=== PATIENT | female | born 1985 | race Caucasian/White ===

== ENCOUNTER 2017-01-03 00:06 | Emergency (ER) | payer OTHER ==
--- NOTE | 2017-01-03 03:09 | ED NURSING NOTES ---
Clinical Report - Nurses [facility] [place] [address] 01/03/2017 0:08 Patient: TATYANA SOUSA TRIAGE Triage time 00:Jan 03 2017. Acuity: LEVEL 4. Chief Complaint: (numbness and tingling all along R arm, pain in neck). Alert. No acute distress. SEPSIS SCREEN: Sepsis Screen. Negative (no infection suspected/documented). ELIJAH COMA SCORE: Elijah Coma Scale: 15- eyes open spontaneously (4); best verbal response- oriented x 4 (5); best motor response- obeys commands (6). --00:22 Doron Page R.N. 00:16 01/03/17. BP: 115/83. HR: 88. RR: 16. O2 saturation: 100% on room air. Temp: 97.8 F. Pain level now: 01/30. --00:22 Doron Page R.N. Weight: 63.5 kg stated. Height/Length: 68 inches Per Patient. BMI: 21.3. --00:15 Doron Page R.N. Medications Multivitamins Oral. --00:20 Doron Page R.N. Allergies Sulfa Antibiotics. --00:20 Doron Page R.N. History Arrived by private vehicle. Historian: patient. Onset. (4 days ago). 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 PAST MEDICAL HX: Immunizations: up-to-date. Last normal menstrual period- a few weeks ago; IUD in place. SOCIAL HX: Light tobacco smoker (cigarette)- less than 1/2 a pack per day. Occasional alcohol use. No drug use. The patient was exposed to MRSA. ABUSE ASSESSMENT: No report of abuse. SELF HARM ASSESSMENT: A self harm assessment was performed. The patient answered "no" to the question "Have you recently felt down, depressed, or hopeless?" and "Do you have thoughts of harming or killing yourself?". FALL RISK ASSESSMENT: Fall risk assessment completed. No fall risk identified. NUTRITIONAL RISK ASSESSMENT: The nutritional risk assessment revealed no deficiencies. FUNCTIONAL ASSESSMENT: Functional assessment: no impairments noted. LEARNING NEEDS ASSESSMENT: The learning needs assessment revealed no barriers. SKIN INTEGRITY ASSESSMENT: Skin integrity risk assessment completed. No skin integrity risk identified. --00:22 Doron Page R.N. ( Pt had some pain in her L scapula starting last year. Her PCP gave her a muscle relaxer but she was unable to take it because it made her sick. The numbness and tingling has been intermittent up until the past 4 days, it has been constant and very uncomfortable. She has some pain along the medial border of her scapula upon palpation.). --00:27 Doron Page R.N. PROBLEMS: no known problems. ADDITIONAL SURGERIES: no known surgeries. Interventions ID band on patient. To treatment room. --00:22 Doron Page R.N. PHYSICAL ASSESSMENT Ambulatory to room. GENERAL / NEURO / PSYCH: Alert. Oriented X 4. Appears in distress. HEENT: Pupils equal, round and reactive to light. RESPIRATORY: Respirations not labored. CVS: Pulses within normal limits. GI / : Abdomen soft and nontender. SKIN: Skin is warm and dry. Normal skin turgor. --00:22 Doron Page R.N. BACK: ( point tenderness along medial scapular border). --00:28 Doron Page R.N. NURSING PROGRESS NOTES The plan of care for this patient has been created. Monitoring of patient in place. Patient gowned. Head of bed elevated. Reassurance given. Two patient identifiers checked. Call light placed in reach. Side rails up x 2. Bed placed in lowest position. Patient ready for evaluation- ED physician notified. --00:22 Doron Page R.N. ( Pt tearful, states the numbness and tingling is very discomforting. Brought her a warm blanket, waiting for Phys Eval.). --01:06 Doron Page R.N. Care transferred and report given (to SAJI Villegas). --01:13 Doron Page R.N. 03:12 01/03/2017 Ultram (TraMADol HCl) PO Tablets 50 mg given. Allergies verified, confirmed 5 rights and sedative warning given to the patient. --03:12 Nelly Cosby R.N. DISPOSITION / DISCHARGE Departure time: 313. Condition at departure: improved and stable. No learning barriers present. Discharge instructions provided and reviewed with the patient. Reviewed medication(s) side effects, precautions, dosing and course information. Patient verbalized understanding. Written instructions provided in Persian. The patient was discharged home and accompanied by molecular biology director. She left the Emergency Department ambulatory and via private vehicle. Diecast Machine Operator driving. --03:21 Nelly Cosby R.N. 03:05 01/03/17. BP: 121/80 taken on the left arm, while lying. HR: 74 (regular and normal rate). RR: 18 (regular and unlabored). O2 saturation: 100% on room air. Temp: deferred. Pain level now: 09/30. --03:21 Nelly Cosby R.N. Locked/Released at 01/03/2017 3:21 by Nelly Cosby R.N.
--- NOTE | 2017-01-03 03:09 | ED ORDER SUMMARY ---
..... Patient: TATYANA SOUSA OrderSheet [facility] VisitID: [id number] [place] [address] 31y, F Registration Date/Time: 01/03/2017 ORDER SHEET Weight: 63.5 kg (stated) Allergies: Sulfa Antibiotics GENERAL ORDERS: Chest 2V Urgent (02:01/03/2017 Amor PATEL) (Ack 2:19 LMuller) (2:31 Thanh) Cervical Spine 2 or 3V Urgent (02:01/03/2017 Amor PATEL) (Ack 2:19 LMuller) (2:31 Thanh) MEDICATION ORDERS: Ultram PO 50 mg (NOW) (03:06 01/03/2017 Amor PATEL) (Ack 3:07 CBradburn R.N.) (3:12 CBradburn R.N.) IV FLUIDS: ORDER SHEET NOTES: [Electronically signed by Nelly Cosby R.N. (03:21 01/03/2017)] [Electronically signed by Neel Landrum MD (10:33 01/05/2017)] [Electronically locked/signed by Nelly Cosby R.N. (03:01/03/2017)]
--- NOTE | 2017-01-03 03:09 | ED NURSING NOTES ---
Clinical Report - Nurses [facility] [place] [address] 01/03/2017 0:08 Patient: TATYANA SOUSA TRIAGE Triage time 00:Jan 03 2017. Acuity: LEVEL 4. Chief Complaint: (numbness and tingling all along R arm, pain in neck). Alert. No acute distress. SEPSIS SCREEN: Sepsis Screen. Negative (no infection suspected/documented). ELIJAH COMA SCORE: Elijah Coma Scale: 15- eyes open spontaneously (4); best verbal response- oriented x 4 (5); best motor response- obeys commands (6). --00:22 Doron Page R.N. 00:16 01/03/17. BP: 115/83. HR: 88. RR: 16. O2 saturation: 100% on room air. Temp: 97.8 F. Pain level now: 01/30. --00:22 Doron Page R.N. Weight: 63.5 kg stated. Height/Length: 68 inches Per Patient. BMI: 21.3. --00:15 Doron Page R.N. Medications Multivitamins Oral. --00:20 Doron Page R.N. Allergies Sulfa Antibiotics. --00:20 Doron Page R.N. History Arrived by private vehicle. Historian: patient. Onset. (4 days ago). 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 PAST MEDICAL HX: Immunizations: up-to-date. Last normal menstrual period- a few weeks ago; IUD in place. SOCIAL HX: Light tobacco smoker (cigarette)- less than 1/2 a pack per day. Occasional alcohol use. No drug use. The patient was exposed to MRSA. ABUSE ASSESSMENT: No report of abuse. SELF HARM ASSESSMENT: A self harm assessment was performed. The patient answered "no" to the question "Have you recently felt down, depressed, or hopeless?" and "Do you have thoughts of harming or killing yourself?". FALL RISK ASSESSMENT: Fall risk assessment completed. No fall risk identified. NUTRITIONAL RISK ASSESSMENT: The nutritional risk assessment revealed no deficiencies. FUNCTIONAL ASSESSMENT: Functional assessment: no impairments noted. LEARNING NEEDS ASSESSMENT: The learning needs assessment revealed no barriers. SKIN INTEGRITY ASSESSMENT: Skin integrity risk assessment completed. No skin integrity risk identified. --00:22 Doron Page R.N. ( Pt had some pain in her L scapula starting last year. Her PCP gave her a muscle relaxer but she was unable to take it because it made her sick. The numbness and tingling has been intermittent up until the past 4 days, it has been constant and very uncomfortable. She has some pain along the medial border of her scapula upon palpation.). --00:27 Doron Page R.N. PROBLEMS: no known problems. ADDITIONAL SURGERIES: no known surgeries. Interventions ID band on patient. To treatment room. --00:22 Doron Page R.N. PHYSICAL ASSESSMENT Ambulatory to room. GENERAL / NEURO / PSYCH: Alert. Oriented X 4. Appears in distress. HEENT: Pupils equal, round and reactive to light. RESPIRATORY: Respirations not labored. CVS: Pulses within normal limits. GI / : Abdomen soft and nontender. SKIN: Skin is warm and dry. Normal skin turgor. --00:22 Doron Page R.N. BACK: ( point tenderness along medial scapular border). --00:28 Doron Page R.N. NURSING PROGRESS NOTES The plan of care for this patient has been created. Monitoring of patient in place. Patient gowned. Head of bed elevated. Reassurance given. Two patient identifiers checked. Call light placed in reach. Side rails up x 2. Bed placed in lowest position. Patient ready for evaluation- ED physician notified. --00:22 Doron Page R.N. ( Pt tearful, states the numbness and tingling is very discomforting. Brought her a warm blanket, waiting for Phys Eval.). --01:06 Doron Page R.N. Care transferred and report given (to SAJI Villegas). --01:13 oDron Page R.N. 03:12 01/03/2017 Ultram (TraMADol HCl) PO Tablets 50 mg given. Allergies verified, confirmed 5 rights and sedative warning given to the patient. --03:12 Nelly Cosby R.N. DISPOSITION / DISCHARGE Departure time: 313. Condition at departure: improved and stable. No learning barriers present. Discharge instructions provided and reviewed with the patient. Reviewed medication(s) side effects, precautions, dosing and course information. Patient verbalized understanding. Written instructions provided in Lao. The patient was discharged home and accompanied by merchandise director. She left the Emergency Department ambulatory and via private vehicle. Athlete Marketing Agent driving. --03:21 Nelly Cosby R.N. 03:05 01/03/17. BP: 121/80 taken on the left arm, while lying. HR: 74 (regular and normal rate). RR: 18 (regular and unlabored). O2 saturation: 100% on room air. Temp: deferred. Pain level now: 09/30. --03:21 Nelly Cosby R.N. Locked/Released at 01/03/2017 3:21 by Nelly Cosby R.N.
--- NOTE | 2017-01-03 03:09 | ED CLINICAL REPORT ---
Clinical Report - Physicians/Mid Levels [facility] [address] [place] [address] 01/03/2017 0:08 Patient: TATYANA SOUSA Time Seen: 01:11. Arrived- By private vehicle. Historian- patient. HISTORY OF PRESENT ILLNESS Chief Complaint: UPPER EXTREMITY PAIN and ALTERED SENSATION. Severity is described as being severe. It has become recently worse. The quality is noted to be aching and "pain". This started several days ago and is still present. Symptoms located in the area of the right arm. The patient has not had redness. No swelling, sensory loss or motor loss. (She had some pain in her L scapula starting last year. Her PCP gave her a muscle relaxer but she was unable to take it because it made her sick. The numbness and tingling has been intermittent up until the past 4 days, it has been constant and very uncomfortable). Patient notes the possibility of an injury. REVIEW OF SYSTEMS No chills, fever, sweats, calf pain or chest pain. No cough, difficulty breathing, pedal edema, palpitations or abdominal pain. No constipation, diarrhea, nausea, vomiting or urinary problems. All systems otherwise negative, except as recorded above. PAST HISTORY Problems: no known problems. Additional Surgeries: no known surgeries. Medications: Multivitamins Oral. Allergies: Sulfa Antibiotics. SOCIAL HISTORY Current every day light tobacco smoker (cigarette)- less than 1/2 a pack per day. Occasional alcohol use. No drug use. FAMILY HISTORY No significant family medical history. ADDITIONAL NOTES The nursing notes have been reviewed. PHYSICAL EXAM Vital Signs: 01/03/2017 00:16 BP: 115/83. HR: 88. RR: 16. O2 saturation: 100%. Temp: 97.8 F. Pain level now: 7/10. Have been reviewed. Appearance: Alert. Eyes: Pupils equal, round and reactive to light. ENT: Pharynx normal. Neck: Normal inspection. Moderate pain in the posterior neck upon turning the head to the left and flexing the neck. CVS: Normal heart rate and rhythm. Heart sounds normal. Respiratory: No respiratory distress. Breath sounds normal. Abdomen: Soft and nontender. No organomegaly. Back: Moderate soft tissue tenderness in the right upper and left upper thoracic paraspinous region. Muscle spasm of the back. Skin: Skin warm and dry. Normal skin color. Normal skin turgor. Extremities: Extremities otherwise negative. Neuro: No motor deficit. No weakness. No sensory deficit. LABS, X-RAYS, AND EKG C-Spine X-rays: (IMPRESSION: 1. Straightening of the cervical lordosis may be a reflection of cervical spasm or positional changes. 2. Otherwise negative cervical spine.). The X-rays were interpreted by the radiologist and contemporaneously by me. Chest X-ray: No acute disease. The X-rays were interpreted by the radiologist and contemporaneously by me. PROGRESS AND PROCEDURES Course of Care: Patient is stable. Patient/family counseled. Old medical records reviewed. Disposition: Discharged. Condition: stable. CLINICAL IMPRESSION Paresthesia INSTRUCTIONS No driving or operating machinery while taking medication. Sedative medication was given during your visit. Limit lifting. Warnings: Further evaluation is necessary. GENERAL WARNINGS: Return or contact your physician immediately if your condition worsens or changes unexpectedly, if not improving as expected, or if other problems arise. Prescription Medications: Ultram 50 mg: take 1-2 orally every 6 hours as needed for pain. Dispense fifteen (15). No refills. Substitution is permissible. Gabapentin 300 mg capsules: take 1 orally every 8 hours. Dispense fifteen (15). No refill. OTC Medications: Motrin (available over the counter): take according to label instructions. Understanding of the discharge instructions verbalized by patient. (Electronically signed by Neel Landrum MD 01/05/2017 10:33)
--- NOTE | 2017-01-03 03:09 | ED ORDER SUMMARY ---
..... Patient: TATYANA SOUSA OrderSheet [facility] VisitID: [id number] [place] [address] 31y, F Registration Date/Time: 01/03/2017 ORDER SHEET Weight: 63.5 kg (stated) Allergies: Sulfa Antibiotics GENERAL ORDERS: Chest 2V Urgent (02:01/03/2017 Amor PATEL) (Ack 2:19 LMuller) (2:31 Thanh) Cervical Spine 2 or 3V Urgent (02:01/03/2017 mAor PATEL) (Ack 2:19 LMuller) (2:31 Thanh) MEDICATION ORDERS: Ultram PO 50 mg (NOW) (03:06 01/03/2017 Amor PATEL) (Ack 3:07 CBradburn R.N.) (3:12 CBradburn R.N.) IV FLUIDS: ORDER SHEET NOTES: [Electronically signed by Nelly Cosby R.N. (03:21 01/03/2017)] [Electronically signed by Neel Landrum MD (10:33 01/05/2017)] [Electronically locked/signed by Nelly Cosby R.N. (03:01/03/2017)]
--- NOTE | 2017-01-03 06:32 | DIAGNOSTIC IMAGING REPORT ---
PROCEDURE: XR CHEST 2 VIEW INDICATION: Right upper extremity paresthesia (tingling). TECHNIQUE: PA and lateral views. COMPARISON: None. FINDINGS: Lungs are clear. Heart and mediastinum are normal. Thorax is normal. IMPRESSION: 1. Negative chest.
--- NOTE | 2017-01-03 06:33 | DIAGNOSTIC IMAGING REPORT ---
PROCEDURE: XR CERVICAL SPINE 2 OR 3 VIEW INDICATION: RUE TINGLING TECHNIQUE: Three views. COMPARISON: None. FINDINGS: Straightening of the cervical lordosis. Osseous structures and disc spaces are normal. No evidence of an acute process or fracture. IMPRESSION: 1. Straightening of the cervical lordosis may be a reflection of cervical spasm or positional changes. 2. Otherwise negative cervical spine.
--- NOTE | 2017-01-05 10:33 | ED MAR SUMMARY ---
..... Medication Administration Record [facility] [address] [place] [address] Patient: TATYANA SOUSA Visit ID: [id number] 31y, F Weight: 63.5 kg Height/Length: 68 in BMI: 21.3 ALLERGIES: Sulfa Antibiotics Given 03:12 01/03/2017 Nelly Cosby R.N. Medication Administered: ULTRAM [PO] (TRAMADOL HCL), Dose: 50 mg Tablets PO. Medication Ordered: Ultram PO 50 mg (NOW).
--- NOTE | 2017-01-05 10:33 | ED MED RECONCILIATION SUMMARY ---
Patient: TATYANA SOUSA Medication Reconciliation Report [facility] VisitID: [id number] [place] [address] 31y, F Registration Date/Time: 01/03/2017 Weight: 63.5 kg Height/Length: 68 in. BMI: 21.3 ALLERGIES: Sulfa Antibiotics The patient's Home Medications are listed below: THE FOLLOWING MEDICATIONS NEED TO BE RECONCILED: Multivitamins Oral The source(s) of the original Home Medication information: Not obtained. The following Medications were given to the patient in the Emergency Department: Ultram [PO] PO 50 mg, administered: 01/03/2017 3:12:00 AM The following Medications were prescribed to the patient: Motrin (available over the counter): take according to label instructions. -- Neel Landrum MD Ultram 50 mg: take 1-2 orally every 6 hours as needed for pain. Dispense fifteen (15). No refills. Substitution is permissible. -- Neel Landrum MD Gabapentin 300 mg capsules: take 1 orally every 8 hours. Dispense fifteen (15). No refill. -- Neel Landrum MD
--- NOTE | 2017-01-05 10:33 | ED MED RECONCILIATION SUMMARY ---
Patient: TATYANA SOUSA Medication Reconciliation Report [facility] VisitID: [id number] [place] [address] 31y, F Registration Date/Time: 01/03/2017 Weight: 63.5 kg Height/Length: 68 in. BMI: 21.3 ALLERGIES: Sulfa Antibiotics The patient's Home Medications are listed below: THE FOLLOWING MEDICATIONS NEED TO BE RECONCILED: Multivitamins Oral The source(s) of the original Home Medication information: Not obtained. The following Medications were given to the patient in the Emergency Department: Ultram [PO] PO 50 mg, administered: 01/03/2017 3:12:00 AM The following Medications were prescribed to the patient: Motrin (available over the counter): take according to label instructions. -- Neel Landrum MD Ultram 50 mg: take 1-2 orally every 6 hours as needed for pain. Dispense fifteen (15). No refills. Substitution is permissible. -- Neel Landrum MD Gabapentin 300 mg capsules: take 1 orally every 8 hours. Dispense fifteen (15). No refill. -- Neel Landrum MD
--- NOTE | 2017-01-05 10:33 | ED MAR SUMMARY ---
..... Medication Administration Record [facility] [address] [place] [address] Patient: TATYANA SOUSA Visit ID: [id number] 31y, F Weight: 63.5 kg Height/Length: 68 in BMI: 21.3 ALLERGIES: Sulfa Antibiotics Given 03:12 01/03/2017 Nelly Cosby R.N. Medication Administered: ULTRAM [PO] (TRAMADOL HCL), Dose: 50 mg Tablets PO. Medication Ordered: Ultram PO 50 mg (NOW).
--- NOTE | 2017-01-05 10:33 | ED DISCHARGE INSTRUCTIONS ---
Patient: TATYANA SOUSA General Instructions [facility] VisitID: [id number] [place] [address] 31y, F Registration Date/Time: 01/03/2017 Paresthesia INSTRUCTIONS No driving or operating machinery while taking medication. Sedative medication was given during your visit. Limit lifting. Warnings: Further evaluation is necessary. GENERAL WARNINGS: Return or contact your physician immediately if your condition worsens or changes unexpectedly, if not improving as expected, or if other problems arise. Prescription Medications: Ultram 50 mg: take 1-2 orally every 6 hours as needed for pain. Dispense fifteen (15). No refills. Substitution is permissible. Gabapentin 300 mg capsules: take 1 orally every 8 hours. Dispense fifteen (15). No refill. OTC Medications: Motrin (available over the counter): take according to label instructions. Understanding of the discharge instructions verbalized by patient. ADDITIONAL INFORMATION Paraesthesias Paraesthesia refers to a burning or prickling sensation that is sometimes felt in the hands, arms, legs or feet. It can also occur in other parts of the body. It can also feel like tingling or numbness, skin crawling or itching.The sensation is usually painless. Most people have experienced pins and needles. This feeling happens when legs have been crossed for too long and pressure is placed on a nerve. This is a temporary paraesthesia. It quickly goes away once the pressure is relieved. There are many possible causes for chronic paraesthesias. These include such disorders as stroke, herniated disk (pressing on a nerve), trapped nerve in the shoulder, elbow or wrist (such as carpal tunnel syndrome), vitamin deficiencies or even certain medicines. Laboratory tests are needed to make an accurate diagnosis. These tests may include blood tests, X-ray, CT (computerized tomography) scan or a muscle test (electromyography).Depending on the cause, treatment may include physical therapy. Home Care: Do not make any changes to your medicines without advice from your doctor. If vitamins have been prescribed, remember to take them daily at the recommended dose. Because of a decrease in feeling, a numb hand or foot may be more prone to injury. Take care to protect these areas from cuts, bumps, bruises, areco or other injury. Keep your nails trimmed and wash your hands and feet often. Wear shoes that fit well to avoid pressure points, blisters and ulcers. Look at your hands and feet carefully (including the soles of your feet and between your toes) at least once a week and notify your doctor of any open wounds or signs of infection. Follow Up with your doctor or as advised by our staff. You may need further testing to determine the exact cause of your paraesthesia. [NOTE: If blood tests, X-ray, CT scan or electromyography were done, specialists will review them. You will be notified of any new findings that may affect your care.] Get Prompt Medical Attention if any of the following occur: Numbness or weakness of the face, one arm or one leg Slurred speech, confusion, trouble speaking, walking or seeing Severe headache, fainting spell, dizziness or seizure Chest, arm, neck or upper back pain Loss of bladder or bowel control Open wound with redness, swelling or pus Tramadol Hydrochloride Oral tablet What is this medicine? TRAMADOL (TRA ma dole) is a pain reliever. It is used to treat moderate to severe pain in adults. How should I use this medicine? Take this medicine by mouth with a full glass of water. Follow the directions on the prescription label. If the medicine upsets your stomach, take it with food or milk. Do not take more medicine than you are told to take. Talk to your manager operating regarding the use of this medicine in children. Special care may be needed. What side effects may I notice from receiving this medicine? Side effects that you should report to your doctor or health long term care social worker as soon as possible: allergic reactions like skin rash, itching or hives, swelling of the face, lips, or tongue breathing difficulties, wheezing confusion itching light headedness or fainting spells redness, blistering, peeling or loosening of the skin, including inside the mouth seizures Side effects that usually do not require medical attention (report to your doctor or health long term care social worker if they continue or are bothersome): constipation dizziness drowsiness headache nausea, vomiting What may interact with this medicine? Do not take this medicine with any of the following medications: MAOIs like Carbex, Eldepryl, Marplan, Nardil, and Parnate This medicine may also interact with the following medications: alcohol or medicines that contain alcohol antihistamines benzodiazepines bupropion carbamazepine or oxcarbazepine clozapine cyclobenzaprine digoxin furazolidone linezolid medicines for depression, anxiety, or psychotic disturbances medicines for migraine headache like almotriptan, eletriptan, frovatriptan, naratriptan, rizatriptan, sumatriptan, zolmitriptan medicines for pain like pentazocine, buprenorphine, butorphanol, meperidine, nalbuphine, and propoxyphene medicines for sleep muscle relaxants naltrexone phenobarbital phenothiazines like perphenazine, thioridazine, chlorpromazine, mesoridazine, fluphenazine, prochlorperazine, promazine, and trifluoperazine procarbazine warfarin What if I miss a dose? If you miss a dose, take it as soon as you can. If it is almost time for your next dose, take only that dose. Do not take double or extra doses. Where should I keep my medicine? Keep out of the reach of children. Store at room temperature between 15 and 30 degrees C (59 and 86 degrees F). Keep container tightly closed. Throw away any unused medicine after the expiration date. What should I tell my health care provider before I take this medicine? They need to know if you have any of these conditions: brain tumor depression drug abuse or addiction head injury if you frequently drink alcohol containing drinks kidney disease or trouble passing urine liver disease lung disease, asthma, or breathing problems seizures or epilepsy suicidal thoughts, plans, or attempt; a previous suicide attempt by you or a family member an unusual or allergic reaction to tramadol, codeine, other medicines, foods, dyes, or preservatives or trying to get breast-feeding What should I watch for while using this medicine? Tell your doctor or health long term care social worker if your pain does not go away, if it gets worse, or if you have new or a different type of pain. You may develop tolerance to the medicine. Tolerance means that you will need a higher dose of the medicine for pain relief. Tolerance is normal and is expected if you take this medicine for a long time. Do not suddenly stop taking your medicine because you may develop a severe reaction. Your body becomes used to the medicine. This does NOT mean you are addicted. Addiction is a behavior related to getting and using a drug for a non-medical reason. If you have pain, you have a medical reason to take pain medicine. Your doctor will tell you how much medicine to take. If your doctor wants you to stop the medicine, the dose will be slowly lowered over time to avoid any side effects. You may get drowsy or dizzy. Do not drive, use machinery, or do anything that needs mental alertness until you know how this medicine affects you. Do not stand or sit up quickly, especially if you are an older patient. This reduces the risk of dizzy or fainting spells. Alcohol can increase or decrease the effects of this medicine. Avoid alcoholic drinks. You may have constipation. Try to have a bowel movement at least every 2 to 3 days. If you do not have a bowel movement for 3 days, call your doctor or health long term care social worker. Your mouth may get dry. Chewing sugarless gum or sucking hard candy, and drinking plenty of water may help. Contact your doctor if the problem does not go away or is severe. Gabapentin Oral tablet What is this medicine? GABAPENTIN (GA ba pen tin) is used to control partial seizures in adults with epilepsy. It is also used to treat certain types of nerve pain. How should I use this medicine? Take this medicine by mouth. Swallow it with a drink of water. Follow the directions on the prescription label. If this medicine upsets your stomach, take it with food or milk. Take your medicine at regular intervals. Do not take it more often than directed. If you are directed to break the 600 or 800 mg tablets in half as part of your dose, the extra half tablet should be used for the next dose. If you have not used the extra half tablet within 3 days, it should be thrown away. A special MedGuide will be given to you by the pharmacist with each prescription and refill. Be sure to read this information carefully each time. Talk to your manager operating regarding the use of this medicine in children. Special care may be needed. What side effects may I notice from receiving this medicine? Side effects that you should report to your doctor or health long term care social worker as soon as possible: allergic reactions like skin rash, itching or hives, swelling of the face, lips, or tongue worsening of mood, thoughts or actions of suicide or dying Side effects that usually do not require medical attention (report to your doctor or health long term care social worker if they continue or are bothersome): constipation difficulty walking or controlling muscle movements dizziness nausea slurred speech tiredness tremors weight gain What may interact with this medicine? Do not take this medicine with any of the following medications: other gabapentin products This medicine may also interact with the following medications: alcohol antacids antihistamines for allergy, cough and cold certain medicines for anxiety or sleep certain medicines for depression or psychotic disturbances homatropine; hydrocodone naproxen narcotic medicines (opiates) for pain phenothiazines like chlorpromazine, mesoridazine, prochlorperazine, thioridazine What if I miss a dose? If you miss a dose, take it as soon as you can. If it is almost time for your next dose, take only that dose. Do not take double or extra doses. Where should I keep my medicine? Keep out of reach of children. Store at room temperature between 15 and 30 degrees C (59 and 86 degrees F). Throw away any unused medicine after the expiration date. What should I tell my health care provider before I take this medicine? They need to know if you have any of these conditions: kidney disease suicidal thoughts, plans, or attempt; a previous suicide attempt by you or a family member an unusual or allergic reaction to gabapentin, other medicines, foods, dyes, or preservatives or trying to get breast-feeding What should I watch for while using this medicine? Visit your doctor or health long term care social worker for regular checks on your progress. You may want to keep a record at home of how you feel your condition is responding to treatment. You may want to share this information with your doctor or health long term care social worker at each visit. You should contact your doctor or health long term care social worker if your seizures get worse or if you have any new types of seizures. Do not stop taking this medicine or any of your seizure medicines unless instructed by your doctor or health long term care social worker. Stopping your medicine suddenly can increase your seizures or their severity. Wear a medical identification bracelet or chain if you are taking this medicine for seizures, and carry a card that lists all your medications. You may get drowsy, dizzy, or have blurred vision. Do not drive, use machinery, or do anything that needs mental alertness until you know how this medicine affects you. To reduce dizzy or fainting spells, do not sit or stand up quickly, especially if you are an older patient. Alcohol can increase drowsiness and dizziness. Avoid alcoholic drinks. Your mouth may get dry. Chewing sugarless gum or sucking hard candy, and drinking plenty of water will help. The use of this medicine may increase the chance of suicidal thoughts or actions. Pay special attention to how you are responding while on this medicine. Any worsening of mood, or thoughts of suicide or dying should be reported to your health long term care social worker right away. Women who become while using this medicine may enroll in the [place]pile[employer] Drug Registry by calling . This registry collects information about the safety of antiepileptic drug use during . Ibuprofen Oral tablet What is this medicine? IBUPROFEN (eye BYOO proe fen) is a non-steroidal anti-inflammatory drug (NSAID). It is used for dental pain, fever, headaches or migraines, osteoarthritis, rheumatoid arthritis, or painful monthly periods. It can also relieve minor aches and pains caused by a cold, flu, or sore throat. How should I use this medicine? Take this medicine by mouth with a glass of water. Follow the directions on the prescription label. Take this medicine with food if your stomach gets upset. Try to not lie down for at least 10 minutes after you take the medicine. Take your medicine at regular intervals. Do not take your medicine more often than directed. A special MedGuide will be given to you by the pharmacist with each prescription and refill. Be sure to read this information carefully each time. Talk to your manager operating regarding the use of this medicine in children. Special care may be needed. What side effects may I notice from receiving this medicine? Side effects that you should report to your doctor or health long term care social worker as soon as possible: allergic reactions like skin rash, itching or hives, swelling of the face, lips, or tongue black or bloody stools, blood in the urine or in vomit breathing problems changes in vision chest pain general ill feeling or flu-like symptoms nausea or vomiting redness, blistering, peeling or loosening of the skin, including inside the mouth slurred speech or weakness on one side of the body stomach pain unexplained weight gain or swelling unusually weak or tired yellowing of eyes or skin Side effects that usually do not require medical attention (report to your doctor or health long term care social worker if they continue or are bothersome): constipation or diarrhea dizziness gas or heartburn stomach upset What may interact with this medicine? Do not take this medicine with any of the following medications: cidofovir ketorolac methotrexate pemetrexed This medicine may also interact with the following medications: alcohol aspirin diuretics lithium other drugs for inflammation like prednisone warfarin What if I miss a dose? If you miss a dose, take it as soon as you can. If it is almost time for your next dose, take only that dose. Do not take double or extra doses. Where should I keep my medicine? Keep out of the reach of children. Store at room temperature between 15 and 30 degrees C (59 and 86 degrees F). Keep container tightly closed. Throw away any unused medicine after the expiration date. What should I tell my health care provider before I take this medicine? They need to know if you have any of these conditions: asthma cigarette smoker drink more than 3 alcohol containing drinks a day heart disease or circulation problems such as heart failure or leg edema (fluid retention) high blood pressure kidney disease liver disease stomach bleeding or ulcers an unusual or allergic reaction to ibuprofen, aspirin, other NSAIDS, other medicines, foods, dyes, or preservatives or trying to get breast-feeding What should I watch for while using this medicine? Tell your doctor or healthcare professional if your symptoms do not start to get better or if they get worse. This medicine does not prevent heart attack or stroke. In fact, this medicine may increase the chance of a heart attack or stroke. The chance may increase with longer use of this medicine and in people who have heart disease. If you take aspirin to prevent heart attack or stroke, talk with your doctor or health long term care social worker. Do not take other medicines that contain aspirin, ibuprofen, or naproxen with this medicine. Side effects such as stomach upset, nausea, or ulcers may be more likely to occur. Many medicines available without a prescription should not be taken with this medicine. This medicine can cause ulcers and bleeding in the stomach and intestines at any time during treatment. Ulcers and bleeding can happen without warning symptoms and can cause . To reduce your risk, do not smoke cigarettes or drink alcohol while you are taking this medicine. You may get drowsy or dizzy. Do not drive, use machinery, or do anything that needs mental alertness until you know how this medicine affects you. Do not stand or sit up quickly, especially if you are an older patient. This reduces the risk of dizzy or fainting spells. This medicine can cause you to bleed more easily. Try to avoid damage to your teeth and gums when you brush or floss your teeth. You have been given the following additional information: Paraesthesias Tramadol Hydrochloride Oral tablet Gabapentin Oral tablet Ibuprofen Oral tablet No driving or operating machinery while taking medication. Sedative medication was given during your visit. Limit lifting. (Electronically signed by Neel Landrum MD 01/05/2017 10:33)
--- NOTE | 2017-01-05 10:33 | ED DISCHARGE INSTRUCTIONS ---
Patient: TATYANA SOUSA General Instructions [facility] VisitID: [id number] [place] [address] 31y, F Registration Date/Time: 01/03/2017 Paresthesia INSTRUCTIONS No driving or operating machinery while taking medication. Sedative medication was given during your visit. Limit lifting. Warnings: Further evaluation is necessary. GENERAL WARNINGS: Return or contact your physician immediately if your condition worsens or changes unexpectedly, if not improving as expected, or if other problems arise. Prescription Medications: Ultram 50 mg: take 1-2 orally every 6 hours as needed for pain. Dispense fifteen (15). No refills. Substitution is permissible. Gabapentin 300 mg capsules: take 1 orally every 8 hours. Dispense fifteen (15). No refill. OTC Medications: Motrin (available over the counter): take according to label instructions. Understanding of the discharge instructions verbalized by patient. ADDITIONAL INFORMATION Paraesthesias Paraesthesia refers to a burning or prickling sensation that is sometimes felt in the hands, arms, legs or feet. It can also occur in other parts of the body. It can also feel like tingling or numbness, skin crawling or itching.The sensation is usually painless. Most people have experienced pins and needles. This feeling happens when legs have been crossed for too long and pressure is placed on a nerve. This is a temporary paraesthesia. It quickly goes away once the pressure is relieved. There are many possible causes for chronic paraesthesias. These include such disorders as stroke, herniated disk (pressing on a nerve), trapped nerve in the shoulder, elbow or wrist (such as carpal tunnel syndrome), vitamin deficiencies or even certain medicines. Laboratory tests are needed to make an accurate diagnosis. These tests may include blood tests, X-ray, CT (computerized tomography) scan or a muscle test (electromyography).Depending on the cause, treatment may include physical therapy. Home Care: Do not make any changes to your medicines without advice from your doctor. If vitamins have been prescribed, remember to take them daily at the recommended dose. Because of a decrease in feeling, a numb hand or foot may be more prone to injury. Take care to protect these areas from cuts, bumps, bruises, arceo or other injury. Keep your nails trimmed and wash your hands and feet often. Wear shoes that fit well to avoid pressure points, blisters and ulcers. Look at your hands and feet carefully (including the soles of your feet and between your toes) at least once a week and notify your doctor of any open wounds or signs of infection. Follow Up with your doctor or as advised by our staff. You may need further testing to determine the exact cause of your paraesthesia. [NOTE: If blood tests, X-ray, CT scan or electromyography were done, specialists will review them. You will be notified of any new findings that may affect your care.] Get Prompt Medical Attention if any of the following occur: Numbness or weakness of the face, one arm or one leg Slurred speech, confusion, trouble speaking, walking or seeing Severe headache, fainting spell, dizziness or seizure Chest, arm, neck or upper back pain Loss of bladder or bowel control Open wound with redness, swelling or pus Tramadol Hydrochloride Oral tablet What is this medicine? TRAMADOL (TRA ma dole) is a pain reliever. It is used to treat moderate to severe pain in adults. How should I use this medicine? Take this medicine by mouth with a full glass of water. Follow the directions on the prescription label. If the medicine upsets your stomach, take it with food or milk. Do not take more medicine than you are told to take. Talk to your wage and hour investigator regarding the use of this medicine in children. Special care may be needed. What side effects may I notice from receiving this medicine? Side effects that you should report to your doctor or health daycare assistant as soon as possible: allergic reactions like skin rash, itching or hives, swelling of the face, lips, or tongue breathing difficulties, wheezing confusion itching light headedness or fainting spells redness, blistering, peeling or loosening of the skin, including inside the mouth seizures Side effects that usually do not require medical attention (report to your doctor or health daycare assistant if they continue or are bothersome): constipation dizziness drowsiness headache nausea, vomiting What may interact with this medicine? Do not take this medicine with any of the following medications: MAOIs like Carbex, Eldepryl, Marplan, Nardil, and Parnate This medicine may also interact with the following medications: alcohol or medicines that contain alcohol antihistamines benzodiazepines bupropion carbamazepine or oxcarbazepine clozapine cyclobenzaprine digoxin furazolidone linezolid medicines for depression, anxiety, or psychotic disturbances medicines for migraine headache like almotriptan, eletriptan, frovatriptan, naratriptan, rizatriptan, sumatriptan, zolmitriptan medicines for pain like pentazocine, buprenorphine, butorphanol, meperidine, nalbuphine, and propoxyphene medicines for sleep muscle relaxants naltrexone phenobarbital phenothiazines like perphenazine, thioridazine, chlorpromazine, mesoridazine, fluphenazine, prochlorperazine, promazine, and trifluoperazine procarbazine warfarin What if I miss a dose? If you miss a dose, take it as soon as you can. If it is almost time for your next dose, take only that dose. Do not take double or extra doses. Where should I keep my medicine? Keep out of the reach of children. Store at room temperature between 15 and 30 degrees C (59 and 86 degrees F). Keep container tightly closed. Throw away any unused medicine after the expiration date. What should I tell my health care provider before I take this medicine? They need to know if you have any of these conditions: brain tumor depression drug abuse or addiction head injury if you frequently drink alcohol containing drinks kidney disease or trouble passing urine liver disease lung disease, asthma, or breathing problems seizures or epilepsy suicidal thoughts, plans, or attempt; a previous suicide attempt by you or a family member an unusual or allergic reaction to tramadol, codeine, other medicines, foods, dyes, or preservatives or trying to get breast-feeding What should I watch for while using this medicine? Tell your doctor or health daycare assistant if your pain does not go away, if it gets worse, or if you have new or a different type of pain. You may develop tolerance to the medicine. Tolerance means that you will need a higher dose of the medicine for pain relief. Tolerance is normal and is expected if you take this medicine for a long time. Do not suddenly stop taking your medicine because you may develop a severe reaction. Your body becomes used to the medicine. This does NOT mean you are addicted. Addiction is a behavior related to getting and using a drug for a non-medical reason. If you have pain, you have a medical reason to take pain medicine. Your doctor will tell you how much medicine to take. If your doctor wants you to stop the medicine, the dose will be slowly lowered over time to avoid any side effects. You may get drowsy or dizzy. Do not drive, use machinery, or do anything that needs mental alertness until you know how this medicine affects you. Do not stand or sit up quickly, especially if you are an older patient. This reduces the risk of dizzy or fainting spells. Alcohol can increase or decrease the effects of this medicine. Avoid alcoholic drinks. You may have constipation. Try to have a bowel movement at least every 2 to 3 days. If you do not have a bowel movement for 3 days, call your doctor or health daycare assistant. Your mouth may get dry. Chewing sugarless gum or sucking hard candy, and drinking plenty of water may help. Contact your doctor if the problem does not go away or is severe. Gabapentin Oral tablet What is this medicine? GABAPENTIN (GA ba pen tin) is used to control partial seizures in adults with epilepsy. It is also used to treat certain types of nerve pain. How should I use this medicine? Take this medicine by mouth. Swallow it with a drink of water. Follow the directions on the prescription label. If this medicine upsets your stomach, take it with food or milk. Take your medicine at regular intervals. Do not take it more often than directed. If you are directed to break the 600 or 800 mg tablets in half as part of your dose, the extra half tablet should be used for the next dose. If you have not used the extra half tablet within 3 days, it should be thrown away. A special MedGuide will be given to you by the pharmacist with each prescription and refill. Be sure to read this information carefully each time. Talk to your wage and hour investigator regarding the use of this medicine in children. Special care may be needed. What side effects may I notice from receiving this medicine? Side effects that you should report to your doctor or health daycare assistant as soon as possible: allergic reactions like skin rash, itching or hives, swelling of the face, lips, or tongue worsening of mood, thoughts or actions of suicide or dying Side effects that usually do not require medical attention (report to your doctor or health daycare assistant if they continue or are bothersome): constipation difficulty walking or controlling muscle movements dizziness nausea slurred speech tiredness tremors weight gain What may interact with this medicine? Do not take this medicine with any of the following medications: other gabapentin products This medicine may also interact with the following medications: alcohol antacids antihistamines for allergy, cough and cold certain medicines for anxiety or sleep certain medicines for depression or psychotic disturbances homatropine; hydrocodone naproxen narcotic medicines (opiates) for pain phenothiazines like chlorpromazine, mesoridazine, prochlorperazine, thioridazine What if I miss a dose? If you miss a dose, take it as soon as you can. If it is almost time for your next dose, take only that dose. Do not take double or extra doses. Where should I keep my medicine? Keep out of reach of children. Store at room temperature between 15 and 30 degrees C (59 and 86 degrees F). Throw away any unused medicine after the expiration date. What should I tell my health care provider before I take this medicine? They need to know if you have any of these conditions: kidney disease suicidal thoughts, plans, or attempt; a previous suicide attempt by you or a family member an unusual or allergic reaction to gabapentin, other medicines, foods, dyes, or preservatives or trying to get breast-feeding What should I watch for while using this medicine? Visit your doctor or health daycare assistant for regular checks on your progress. You may want to keep a record at home of how you feel your condition is responding to treatment. You may want to share this information with your doctor or health daycare assistant at each visit. You should contact your doctor or health daycare assistant if your seizures get worse or if you have any new types of seizures. Do not stop taking this medicine or any of your seizure medicines unless instructed by your doctor or health daycare assistant. Stopping your medicine suddenly can increase your seizures or their severity. Wear a medical identification bracelet or chain if you are taking this medicine for seizures, and carry a card that lists all your medications. You may get drowsy, dizzy, or have blurred vision. Do not drive, use machinery, or do anything that needs mental alertness until you know how this medicine affects you. To reduce dizzy or fainting spells, do not sit or stand up quickly, especially if you are an older patient. Alcohol can increase drowsiness and dizziness. Avoid alcoholic drinks. Your mouth may get dry. Chewing sugarless gum or sucking hard candy, and drinking plenty of water will help. The use of this medicine may increase the chance of suicidal thoughts or actions. Pay special attention to how you are responding while on this medicine. Any worsening of mood, or thoughts of suicide or dying should be reported to your health daycare assistant right away. Women who become while using this medicine may enroll in the [place] [employer] Drug Registry by calling . This registry collects information about the safety of antiepileptic drug use during . Ibuprofen Oral tablet What is this medicine? IBUPROFEN (eye BYOO proe fen) is a non-steroidal anti-inflammatory drug (NSAID). It is used for dental pain, fever, headaches or migraines, osteoarthritis, rheumatoid arthritis, or painful monthly periods. It can also relieve minor aches and pains caused by a cold, flu, or sore throat. How should I use this medicine? Take this medicine by mouth with a glass of water. Follow the directions on the prescription label. Take this medicine with food if your stomach gets upset. Try to not lie down for at least 10 minutes after you take the medicine. Take your medicine at regular intervals. Do not take your medicine more often than directed. A special MedGuide will be given to you by the pharmacist with each prescription and refill. Be sure to read this information carefully each time. Talk to your wage and hour investigator regarding the use of this medicine in children. Special care may be needed. What side effects may I notice from receiving this medicine? Side effects that you should report to your doctor or health daycare assistant as soon as possible: allergic reactions like skin rash, itching or hives, swelling of the face, lips, or tongue black or bloody stools, blood in the urine or in vomit breathing problems changes in vision chest pain general ill feeling or flu-like symptoms nausea or vomiting redness, blistering, peeling or loosening of the skin, including inside the mouth slurred speech or weakness on one side of the body stomach pain unexplained weight gain or swelling unusually weak or tired yellowing of eyes or skin Side effects that usually do not require medical attention (report to your doctor or health daycare assistant if they continue or are bothersome): constipation or diarrhea dizziness gas or heartburn stomach upset What may interact with this medicine? Do not take this medicine with any of the following medications: cidofovir ketorolac methotrexate pemetrexed This medicine may also interact with the following medications: alcohol aspirin diuretics lithium other drugs for inflammation like prednisone warfarin What if I miss a dose? If you miss a dose, take it as soon as you can. If it is almost time for your next dose, take only that dose. Do not take double or extra doses. Where should I keep my medicine? Keep out of the reach of children. Store at room temperature between 15 and 30 degrees C (59 and 86 degrees F). Keep container tightly closed. Throw away any unused medicine after the expiration date. What should I tell my health care provider before I take this medicine? They need to know if you have any of these conditions: asthma cigarette smoker drink more than 3 alcohol containing drinks a day heart disease or circulation problems such as heart failure or leg edema (fluid retention) high blood pressure kidney disease liver disease stomach bleeding or ulcers an unusual or allergic reaction to ibuprofen, aspirin, other NSAIDS, other medicines, foods, dyes, or preservatives or trying to get breast-feeding What should I watch for while using this medicine? Tell your doctor or healthcare professional if your symptoms do not start to get better or if they get worse. This medicine does not prevent heart attack or stroke. In fact, this medicine may increase the chance of a heart attack or stroke. The chance may increase with longer use of this medicine and in people who have heart disease. If you take aspirin to prevent heart attack or stroke, talk with your doctor or health daycare assistant. Do not take other medicines that contain aspirin, ibuprofen, or naproxen with this medicine. Side effects such as stomach upset, nausea, or ulcers may be more likely to occur. Many medicines available without a prescription should not be taken with this medicine. This medicine can cause ulcers and bleeding in the stomach and intestines at any time during treatment. Ulcers and bleeding can happen without warning symptoms and can cause . To reduce your risk, do not smoke cigarettes or drink alcohol while you are taking this medicine. You may get drowsy or dizzy. Do not drive, use machinery, or do anything that needs mental alertness until you know how this medicine affects you. Do not stand or sit up quickly, especially if you are an older patient. This reduces the risk of dizzy or fainting spells. This medicine can cause you to bleed more easily. Try to avoid damage to your teeth and gums when you brush or floss your teeth. You have been given the following additional information: Paraesthesias Tramadol Hydrochloride Oral tablet Gabapentin Oral tablet Ibuprofen Oral tablet No driving or operating machinery while taking medication. Sedative medication was given during your visit. Limit lifting. (Electronically signed by Neel Landrum MD 01/05/2017 10:33)
== END 2017-01-03 03:14 | disposition home or self-care (01) ==
LOC: ED SRH 00:06
DX: R20.2 Paresthesia of skin (principal); Z79.899 Other long term (current) drug therapy; F17.210 Nicotine dependence, cigarettes, uncomplicated; Z88.1 Allergy status to other antibiotic agents